=== PATIENT | male | born 1965 | race Caucasian/White ===

== ENCOUNTER 2018-05-28 20:47 | Emergency (ER) | payer BC ==
[~2018-05-28] VITALS: Ht 182.9 cm; Wt 90.9 kg
[2018-05-28 20:49] VITALS: Ht 182.9 cm; Wt 90.9 kg
[2018-05-28] MEDS ORDERED: B12 (20:52)
[2018-05-28] MEDS ORDERED: CO-Q 10 (20:52)
[2018-05-28] MEDS ORDERED: FISH OIL (20:52)
[2018-05-28] MEDS ORDERED: [UNRECOGNIZED DRUG - CODE] (20:52)
[2018-05-28] MEDS ORDERED: MULTIVITAMIN (20:53)
[2018-05-28] MEDS ORDERED: CALICUM (20:53)
[2018-05-28] MEDS ORDERED: FOCUS FACTOR (20:53)
[2018-05-28 22:55] VITALS: BP 134/77
== END 2018-05-28 22:55 | disposition home or self-care (01) ==
LOC: D.ER 20:47
DX: S00.93XA Contusion of unspecified part of head, initial encounter (principal); W18.30XA Fall on same level, unspecified, initial encounter; Y93.89 Activity, other specified; Y92.89 Other specified places as the place of occurrence of the external cause